=== PATIENT | male | born 1980 | race Caucasian/White ===

== ENCOUNTER 2016-10-15 09:39 | Emergency (ER) | payer SELFPAY ==
[2016-10-15] MEDS ORDERED: LIDOCAINE 1% INJ-PF (10 MG/ML) 30 ML SDV INJ ONE (11:22)
[2016-10-15] MEDS ORDERED: OXYCODONE-ACETAMINOPHEN 5-325 MG TABLET PO ONE (11:29)
--- NOTE | 2016-10-15 11:38 | ER Document Report ---
ED Extremity Problem, Lower - General Mode of Arrival: Ambulatory Information source: Patient TRAVEL OUTSIDE OF THE [place] IN LAST 30 DAYS: No - HPI Patient complains to provider of: Pain, Swelling Location: Knee - right Occurred: Other - 2-3 weeks ago Associated symptoms: Other - see above <ROBERTO BLAIR - Last Filed: 10/15/16 11:22> <THERESE SAMPSON - Last Filed: 10/18/16 01:10> - General Chief Complaint: Knee Pain Stated Complaint: KNEE PAIN Notes: 35 year old male presents to the ED complaining of pain and swelling to the right knee that radiates down to the right ankle secondary to an abscess that formed 2-3 weeks ago. Patient is additionally complaining of pain that radiates from his right knee up to his right hip. Patient admits to trying to cut the abscess open on his own. 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 Patient developed an abscess on the left knee and then began to kneel down on his right knee since his left knee was in pain. Patient states that he was given Bactrim from the ED and that he has finished his course and his left knee abscess has healed. ( ROBERTO BLAIR) - Related Data Allergies/Adverse Reactions: No Known Allergies Allergy (Verified 10/15/16 09:56) Past Medical History - General Information source: Patient - Social History Smoking Status: Current Every Day Smoker Chew tobacco use (# tins/day): No Frequency of alcohol use: None Drug Abuse: Marijuana Family History: Reviewed & Not Pertinent Patient has suicidal ideation: No Patient has homicidal ideation: No Pulmonary Medical History: Reports: Hx Bronchitis - Immunizations Hx Diphtheria, Pertussis, Tetanus Vaccination: Yes <ROBERTO BLAIR - Last Filed: 10/15/16 11:22> Review of Systems - Review of Systems Constitutional: No symptoms reported EENT: No symptoms reported Cardiovascular: No symptoms reported Respiratory: No symptoms reported Gastrointestinal: No symptoms reported Genitourinary: No symptoms reported Male Genitourinary: No symptoms reported Musculoskeletal: See HPI, Joint pain - right knee that radiates to right ankle and hip, Joint swelling - right knee and ankle Skin: No symptoms reported Hematologic/Lymphatic: No symptoms reported Neurological/Psychological: No symptoms reported -: Yes All other systems reviewed and negative <ROBERTO BLAIR - Last Filed: 10/15/16 11:22> Physical Exam - Vital signs Interpretation: Normal - General General appearance: Alert In distress: None - HEENT Head: Normocephalic, Atraumatic Eyes: Normal Extraocular movements intact: Yes Pupils: PERRL - Respiratory Respiratory status: No respiratory distress Breath sounds: Rhonchi - bilaterally, Other - Coarse breath sounds - Cardiovascular Rhythm: Regular Heart sounds: Normal auscultation - Abdominal Inspection: Normal - Back Back: Normal - Extremities General upper extremity: Normal inspection, Normal ROM General lower extremity: Edema - right foot and ankle. No: Normal inspection - see knee exam below Knee: Tender - Tenderness to palpation of the right anterior inferior knee over the infrapatellar bursa., Other - Erythema, swelling, and active pus drainage to the anterior inferior right knee over the infrapatellar bursa. Abscess to the right knee appears to have healed.. No: Normal - Neurological Neuro grossly intact: Yes - Psychological Associated symptoms: Normal affect, Normal mood - Skin Skin Temperature: Warm Skin Moisture: Dry Skin Color: Normal - see knee exam above Skin irregularity: other - see knee exam above <ROBERTO BLAIR - Last Filed: 10/15/16 11:22> <THERESE SAMPSON - Last Filed: 10/18/16 01:10> - Vital signs Vitals: Temp Pulse Resp BP Pulse Ox 98.2 F 76 20 137/71 H 99 10/15/16 09:56 10/15/16 09:56 10/15/16 09:56 10/15/16 09:56 10/15/16 09:56 (ROBERTO BLAIR) (THERESE SAMPSON) Procedures - Incision and Drainage Right Anterior Knee Type: Simple Anesthetic type: 1% Lidocaine mL's of anesthetic: 5 I&D procedure: Chlorprep applied, Iodoform packing placed Incision Method: Incision made by scalpel Amount/type of drainage: small amount purulent drainage, large cavity-- previously had drained <THERESE SAMPSON - Last Filed: 10/18/16 01:10> Discharge <ROBERTO BLAIR - Last Filed: 10/15/16 11:22> <THERESE SAMPSON - Last Filed: 10/18/16 01:10> - Discharge Clinical Impression: Infected right infrapatellar bursa Cellulitis Qualifiers: Site of cellulitis: extremity Site of cellulitis of extremity: lower extremity Laterality: right Qualified Code(s): L03.115 - Cellulitis of right lower limb Condition: Stable Disposition: HOME, SELF-CARE Additional Instructions: Abscess: You have an abscess (boil). This a pus-forming infection, usually due to staph. Some boils may be left to drain on their own, but most require lancing. From the time the tender lump first appears, it may be three or four days before the abscess is ready to nisreen. Local heat and rest help at this stage of treatment. An antibiotic may prevent spread of the infection. Once the abscess is opened, packing may be placed into it. This is done so pus is not sealed inside by premature closure of the cavity. The packing will be removed at your follow-up visit or you may be advised to remove it yourself at home. Sometimes this packing must be replaced a few times during healing. The wound will heal with surprisingly little scar. Depending on the size and location of an abscess, healing can take one to four weeks. You may shower and wash the area around the incision site two or three times a day. Antibiotics may be prescribed, but are usually not necessary after an abscess has been drained. If you develop fever, chilling, worsening pain, or increasing swelling in the area, call the doctor or return immediately. TAKE THE MEDICATION PRESCRIBED. APPLY WARM SOAKS TO THE KNEE. ELEVATE THE LEG ALL THE TIME. LIMIT WALKING. RETURN MONDAY FOR RECHECK AND GAUZE REMOVAL. Prescriptions: Cephalexin Monohydrate [Keflex 500 mg Capsule] 500 mg PO QID #28 capsule Oxycodone HCl/Acetaminophen [Percocet 5-325 mg Tablet] 1 tab PO ASDIR PRN #15 tablet PRN Reason: Sulfamethoxazole/Trimethoprim [Bactrim Ds Tablet] 2 tab PO BID #28 tablet Scribe Attestation: 10/15/16 12:34 I personally performed the services described in the documentation, reviewed and edited the documentation which was dictated to the scribe in my presence, and it accurately records my words and actions. (THERESE SAMPSON) Scribe Documentation - Scribe Written by Rosey:: Rosey Gonzales, 10/15/2016 11:43 acting as scribe for :: Marshal <ROBERTO BLAIR - Last Filed: 10/15/16 11:22>
[2016-10-15] MEDS ORDERED: HYDROCODONE/ACETAMINOPHEN 5-325 MG 6 TAB/DSPK PO PRN (12:34)
[2016-10-15] MEDS ORDERED: SULFAMETHOXAZOLE/TRIMETHOPRIM 800-160 MG TABLET PO ONE (12:34)
[2016-10-15] MEDS ORDERED: CEPHALEXIN 500 MG CAPSULE PO ONE (12:34)
[2016-10-15 12:55] VITALS: BP 138/88
== END 2016-10-15 12:55 | disposition home or self-care (01) ==
LOC: ER 09:39
PROC: 0H9KXZZ Drainage of Right Lower Leg Skin, External Approach (ICD-10-PCS; principal; 2016-10-15)
DX: L03.115 Cellulitis of right lower limb (principal); M71.161 Other infective bursitis, right knee; M25.561 Pain in right knee; F17.210 Nicotine dependence, cigarettes, uncomplicated
CPT/HCPCS: 10060; 99283; 87070; 87205; 87075; 87077; 87186; J3490

== ENCOUNTER 2016-10-17 09:48 | Emergency (ER) | payer SELFPAY ==
--- NOTE | 2016-10-17 09:56 | ER Document Report ---
ED Medical Screen (RME) - General Chief Complaint: Wound Recheck Stated Complaint: WOUND RECHECK Time seen by provider: 09:54 Mode of Arrival: Ambulatory Information source: Patient Notes: 35 yo male presents to ed for abscess recheck which was I&D on Monday and packing placed. He was placed on and Keflex and oxycodone. I have greeted and performed a rapid initial assessment of this patient. A comprehensive ED assessment and evaluation of the patient, analysis of test results and completion of medical decision making process will be conducted by an additional ED providers. TRAVEL OUTSIDE OF THE [place] IN LAST 30 DAYS: No - Related Data Allergies/Adverse Reactions: No Known Allergies Allergy (Verified 10/15/16 09:56) Past Medical History Pulmonary Medical History: Reports: Hx Bronchitis Renal/ Medical History: Denies: Hx Peritoneal Dialysis - Immunizations Hx Diphtheria, Pertussis, Tetanus Vaccination: Yes
--- NOTE | 2016-10-17 10:48 | ER Document Report ---
ED General - General Chief Complaint: Wound Recheck Stated Complaint: WOUND RECHECK Mode of Arrival: Ambulatory Notes: This is a 35 yo male who presents after having a abscess incised and drained in the ER approximately 2 days ago. He states the area seems to be improving. It is still painful. He has been taking his antibiotics. His culture grew out MRSA. Patient denies any fevers or systemic illness such as nausea or vomiting. TRAVEL OUTSIDE OF THE [place] IN LAST 30 DAYS: No - Related Data Allergies/Adverse Reactions: No Known Allergies Allergy (Verified 10/15/16 09:56) Past Medical History - General Information source: Patient - Social History Smoking Status: Current Every Day Smoker Frequency of alcohol use: None Drug Abuse: None Family History: Reviewed & Not Pertinent Patient has suicidal ideation: No Patient has homicidal ideation: No Pulmonary Medical History: Reports: Hx Bronchitis Renal/ Medical History: Denies: Hx Peritoneal Dialysis - Immunizations Hx Diphtheria, Pertussis, Tetanus Vaccination: Yes Review of Systems - Review of Systems Constitutional: denies: Fever, Malaise EENT: denies: Throat pain Cardiovascular: denies: Syncope Respiratory: denies: Short of breath Gastrointestinal: denies: Vomiting Genitourinary: denies: Flank pain Musculoskeletal: denies: Leg swelling Skin: denies: Lumps, Rash Hematologic/Lymphatic: denies: Easy bleeding Neurological/Psychological: denies: Weakness, Numbness, Tingling Physical Exam - Vital signs Vitals: Temp Pulse Resp BP Pulse Ox 97.8 F 84 18 116/75 100 10/17/16 09:53 10/17/16 09:53 10/17/16 09:53 10/17/16 09:53 10/17/16 09:53 - General General appearance: Appears well, Alert In distress: None - Extremities General upper extremity: Normal inspection General lower extremity: Other - Packing and gauze dressing were removed from the right knee incision. There is a small circular defect with clean edges, beefy red granulation tissue, no purulence able to be expressed, minimal surrounding erythema and induration, no significant cellulitic changes, no knee joint effusion. There is normal range of motion of the knee. Thecalf and thigh appear normal, there is no erythema or swelling. - Neurological Neuro grossly intact: Yes Orientation: AAOx4 Sensory: Normal - Psychological Associated symptoms: Normal affect Course - Vital Signs Vital signs: Temp Pulse Resp BP Pulse Ox 97.8 F 84 18 116/75 100 10/17/16 09:53 10/17/16 09:53 10/17/16 09:53 10/17/16 09:53 10/17/16 09:53 Discharge - Discharge Clinical Impression: Abscess of knee, right Condition: Good Disposition: HOME, SELF-CARE Instructions: Oral Narcotic Medication ([facility]) Additional Instructions: keep wound clean, dry and covered until well healed. Return to ER if you feel like there is increased redness, swelling or if there is fever. Prescriptions: Oxycodone HCl/Acetaminophen [Percocet 5-325 mg Tablet] 1 - 2 tab PO Q4H PRN #15 tablet PRN Reason:
[2016-10-17 11:05] VITALS: BP 123/75
== END 2016-10-17 11:00 | disposition home or self-care (01) ==
LOC: ER 09:48
DX: L02.415 Cutaneous abscess of right lower limb (principal); F17.210 Nicotine dependence, cigarettes, uncomplicated
CPT/HCPCS: 99282